=== PATIENT | female | born 1980 | race Caucasian/White ===

== ENCOUNTER 2016-12-21 12:12 | Outpatient (CLI) | payer OTHER ==
[~2016-12-21 12:12] MED LIST: ACHYD1T PO; DCS100C PO; IBP800T PO; PREN1TAB14 PO
== END 2016-12-21 13:15 | disposition home or self-care (01) ==
LOC: WSo 12:12
PROVIDERS: ATTEND Obstetrics & Gynecology
DX: Z41.8 Encounter for other procedures for purposes other than remedying health state (principal)
CPT/HCPCS: 96372

== ENCOUNTER 2017-02-27 05:31 | Outpatient (CLI) | payer OTHER ==
[~2017-02-27] VITALS: Ht 162.6 cm; Wt 102.1 kg
[2017-02-27] MEDS ORDERED: PREN-37 PO (11:27)
== END 2017-02-27 13:08 ==
LOC: PREOP 05:31
PROVIDERS: ATTEND Obstetrics & Gynecology
DX: Z01.818 Encounter for other preprocedural examination (principal); O34.219 Maternal care for unspecified type scar from previous cesarean delivery; O99.013 Anemia complicating pregnancy, third trimester; D64.9 Anemia, unspecified

== ENCOUNTER → 2017-02-28 | Outpatient (CLI) | payer OTHER ==
[~2017-02-28] MED LIST changes: +PREN-37 PO
[2017-02-28 11:43] LABS: PROTEIN/CREATININE RATIO 0.13
== END ==
LOC: LABNPT 11:20
PROVIDERS: ATTEND Obstetrics & Gynecology
DX: O14.03 Mild to moderate pre-eclampsia, third trimester (principal)
CPT/HCPCS: 82570; 84156

== ENCOUNTER 2017-03-06 07:00 | Inpatient (IN) | payer OTHER ==
[~2017-03-06] VITALS: Ht 165.1 cm; Wt 101.6 kg
[2017-03-07 11:15] VITALS: BP 139/86
[2017-03-07] MEDS ORDERED: metroNIDAZOLE 500MG/100ML IVPB 100 ML ONE (12:09)
[2017-03-07] MEDS ORDERED: LACTATED RINGERS 1,000 ML IV ONE ×2 (12:09→16:05)
[2017-03-07] MEDS ORDERED: METOCLOPRAMIDE INJ 10 MG/2 ML (REGLAN) ONE (12:09)
[2017-03-07] MEDS ORDERED: ceFAZolin 2 GM/50 ML NS 50 ML ONE (12:09)
[2017-03-07] MEDS ORDERED: CITRIC ACID/SOB CIT (BICITRA) 30 ML UDC ONE (12:09)
[2017-03-07] MEDS ORDERED: FAMOTIDINE 20MG/2ML IV (PEPCID) ONE (12:10)
[2017-03-07] MEDS ORDERED: metroNIDAZOLE 500 MG/100 ML IVPB (PRE-MIX) IV ONE (12:30)
[2017-03-07] MEDS ORDERED: ceFAZolin 2 GM/NS 50 ML IV ONE (12:30)
[2017-03-07] MEDS ORDERED: LACTATED RINGERS 1,000 ML IV PRN (12:40)
[2017-03-07] MEDS ORDERED: metroNIDAZOLE 500MG/100ML IVPB 100 ML IV ONE (12:45)
[2017-03-07] MEDS ORDERED: ceFAZolin 2 GM/50 ML NS 50 ML IV ONE (12:45)
[2017-03-07] MEDS ORDERED: CATHETER FLUSH 10 ML SYR IV PRN (12:45)
[2017-03-07] MEDS ORDERED: CITRIC ACID/SOB CIT (BICITRA) 30 ML UDC PO ONE ×2 (12:45→14:00)
[2017-03-07] MEDS ORDERED: METOCLOPRAMIDE INJ 10 MG/2 ML (REGLAN) IV ONE ×2 (12:45→14:00)
[2017-03-07] MEDS ORDERED: FAMOTIDINE 20MG/2ML IV (PEPCID) IV ONE ×2 (12:45→14:00)
[2017-03-07 12:56] LABS: BASOPHILS % (AUTO) 0 % (0-10); EOSINOPHILS # (AUTO) 0.1 10^3/uL (0.0-0.3); EOSINOPHILS % (AUTO) 1 % (0-10); LYMPHOCYTES # (AUTO) 1.2 X 10^3 (1.0-4.0); LYMPHOCYTES % (AUTO) 13 % (12-44); MEAN CORPUSCULAR HEMOGLOBIN 29 PG (25-34); MEAN CORPUSCULAR HGB CONC 34 G/DL (32-36); MEAN CORPUSCULAR VOLUME 87 FL (80-99); MEAN PLATELET VOLUME 12.4 FL (7.4-10.4); MONOCYTES # (AUTO) 0.5 X 10^3 (0.0-1.0); MONOCYTES % (AUTO) 5 % (0-12); NEUTROPHILS # (AUTO) 7.5 X 10^3 (1.8-7.8); NEUTROPHILS % (AUTO) 81 % (42-75); PLATELET COUNT 176 10^3/uL (130-400); RED BLOOD COUNT 3.76 10^6/uL (4.35-5.85); RED CELL DISTRIBUTION WIDTH 13.6 % (10.0-14.5); WHITE BLOOD COUNT 9.3 10^3/uL (4.3-11.0)
[2017-03-07] MEDS ORDERED: LACTATED RINGERS 1,000 ML IV SCH ×2 (13:57)
[2017-03-07] MEDS ORDERED: morphine PF (DURAMORPH) 10 MG/10 ML AMP ONE (14:54)
[2017-03-07] MEDS ORDERED: fentaNYL INJECTION 100 MCG/2 ML AMP ONE (14:54)
--- NOTE | 2017-03-07 15:13 | History & Physical ---
History and Physical Date Seen by Provider: Mar 07, 2017 Time Seen by Provider: 15:10 this patient is a 36-year-old G2 P Johnny 1 white female currently at 39 weeks gestation. She presents now for repeat delivery. Her GBS culture was negative. She denies rupture membranes or bleeding. Allergies are to penicillin which causes a rash Medications are vitamins Past medical history, past surgical history, genetic history, family history, social history is operative record HEENT exam is normal Neck supple no lymphadenopathy no thyromegaly Abdomen gravid soft nontender nondistended extremities show no clubbing or cyanosis. There is fairly notable pretibial pitting edema that is not unusual for this patient. pelvic exam is deferred Lab recess follows Laboratory Tests 03/07/17 12:20 assessment and plan term at 39 weeks gestation admitted now for repeat delivery. Surgical risks complications recovered uneventfully discussed. Patient is ready to proceed. term at 39 weeks for repeat delivery Allergies and Home Medications Allergies Coded Allergies: Penicillins (Verified Allergy, Unknown, HIVES, 02/27/17) Home Medications Vit/Iron Fumarate/FA 1 Each Tablet, 1 EACH PO DAILY, (Reported) JAKE SERVIN MD Mar 07, 2017 3:12 pm
[2017-03-07] MEDS ORDERED: BUPIVACAINE SPINAL 0.75% (SENSORCAINE) 2 ML AMP ONE (15:14)
[2017-03-07] MEDS ORDERED: PROMETHAZINE INJ 25 MG/ML (PHENERGAN) AMP IM PRN (15:15)
[2017-03-07] MEDS ORDERED: MEPERIDINE (DEMEROL) INJ 100 MG/ML IM PRN (15:15)
[2017-03-07] MEDS ORDERED: TETANUS,DIPTH,PERTUSS P/F (BOOSTRIX) 0.5 ML VIAL IM ONE (15:15)
[2017-03-07] MEDS ORDERED: ONDANSETRON 4 MG/2 ML (SDV) Z0FRAN ONE (15:15)
[2017-03-07] MEDS ORDERED: D5 LR IV SOLUTION 1,000 ML IV ONE (15:15)
[2017-03-07] MEDS ORDERED: oxyCODONE/APAP 10/325MG (PERCOCET 10) TABLET PO PRN (15:15)
[2017-03-07] MEDS ORDERED: MEASLES,MUMPS,RUBELLA 1 EA INJ SC ONE (15:15)
[2017-03-07] MEDS ORDERED: OXYTOCIN/NORMAL SALINE 500 ML IV ONE (15:50)
[2017-03-07] MEDS ORDERED: fentaNYL INJECTION 100 MCG/2 ML AMP INJ ONE (16:15)
[2017-03-07] MEDS ORDERED: NALOXONE 0.4 MG/ML 1 ML (NARCAN) VIAL IV PRN (16:15)
[2017-03-07] MEDS ORDERED: morphine PF (DURAMORPH) 10 MG/10 ML AMP INJ ONE (16:15)
[2017-03-07] MEDS ORDERED: ONDANSETRON 4 MG/2 ML (SDV) Z0FRAN IV PRN (16:15)
[2017-03-07] MEDS: OXYTOCIN/NORMAL SALINE 500 ML IV SCH ×2 (16:16→20:23)
[2017-03-07] MEDS: HYDROCORTISONE 2.5% CREAM (ANUSOL-HC) 30 GM TOP SCH (16:24)
[2017-03-07] MEDS: KETOROLAC 30 MG/ML VIAL IVP SCH ×2 (16:25→22:04)
[2017-03-07] MEDS: DOCUSATE SODIUM 100 MG (COLACE) CAP PO SCH (20:25)
[2017-03-07 20:30] VITALS: BP 151/78
[2017-03-08 00:20] VITALS: BP 143/77
--- NOTE | 2017-03-08 02:11 | OPERATIVE REPORT ---
DATE OF SERVICE: 03/07/2017 PREOPERATIVE DIAGNOSIS: Term with previous at 39 weeks, now presenting for repeat . POSTOPERATIVE DIAGNOSIS: Term with previous at 39 weeks, now presenting for repeat . OPERATIVE PROCEDURE: Repeat low transverse delivery of a viable female infant with Apgars of 8 and 9 at 1 and 5 minutes respectively, weight of 6 pounds and 9 ounces. Cord blood pH of 7.32 and the time of 15:30. OPERATIVE DESCRIPTION: With the patient in the supine position under satisfactory spinal anesthesia, the patient was prepped and draped in the usual fashion for abdominal surgery. Lyn catheter was placed to dependent drainage. A repeat Pfannenstiel incision was made through the skin with a scalpel at the patient's previous Pfannenstiel incision by removing the incisional scar. The abdomen was entered in the usual manner. Bladder retractor was placed in position and clean scalpel was used to make a 4 cm hysterotomy incision transversally across the lower uterine segment that was extended by blunt dissection as well. Copious clear fluid was released on hysterotomy. A vigorous viable female was delivered via the uterine incision. Bran forceps were applied to facilitate the delivery and minimize the excess pressure that would have been required on the abdomen to expel the baby. The infant was bulb suctioned on delivery of the head and again on completion of delivery. The umbilical cord was doubly clamped and cut and the passed to the pediatric nurse in attendance for delivery. Cord bloods were obtained. The placenta delivered spontaneously Schultze. It was normal with a 3-vessel cord. The uterus was exteriorized, the interior wiped clean with a wet laparotomy sponge. Uterine incision was closed with a running lock suture of 2-0 Vicryl. Hemostasis was complete. The uterus was returned to the abdominal cavity. All blood clot and debris removed from the abdominal cavity. With sponge and needle counts correct and hemostasis assured, the anterior parietal peritoneum was closed with running suture of 2-0 Vicryl. The rectus muscles were closed with that same suture. The rectus fascia was closed with 2-0 Vicryl and then a subcutaneous tissue with 2-0 Vicryl and the skin was stapled. Sponge and needle counts were correct at the end of the procedure. Estimated blood loss for the procedure was around 500 mL. The patient tolerated the procedure well and was transferred to the recovery room in stable condition. The infant had been taken stable to the full term nursery under the care of the pediatric nurse. Job ID: [id number] DocumentID: [id number] Dictated Date: 03/07/2017 16:01:07 Engineer Intern Date: 03/08/2017 02:10:26 Dictated By: JAKE SERVIN MD
[2017-03-08 04:15] VITALS: BP 135/76
[2017-03-08] MEDS: KETOROLAC 30 MG/ML VIAL IVP SCH (04:17)
--- NOTE | 2017-03-08 07:56 | Progress Note-Standard ---
Standard Progress Note Progress Notes/Assess & Plan Date Seen by Provider: Mar 08, 2017 Time Seen by Provider: 07:55 Progress/Assessment & Plan this patient is without complaint. She denies chest pain, denies shortness of breath, denies nausea vomiting, denies headache. This patient is ablating, voiding, tolerating by mouth well, and has good pain control. Vital Signs Date Time Temp Pulse Resp B/P (MAP) Pulse Ox O2 Delivery O2 Flow Rate FiO2 03/08/17 04:15 98.3 71 18 135/76 (95) 98 Room Air 03/08/17 00:20 98.3 75 18 143/77 (99) 96 Room Air 03/07/17 20:30 99.0 83 18 151/78 (102) 96 Room Air 03/07/17 11:15 85 18 139/86 (103) Room Air I & O 03/08/17 07:00 Intake Total 4250 ml Output Total 1475 ml Balance 2775 ml Vital signs are stable. Patient is afebrile. The abdomen is benign. The surgical incision is clean dry and intact. The fundus is firm below the umbilicus and nontender. Extremities show no clubbing cyanosis. There is no Homans sign. There is some obvious pretibial pitting edema that is not abnormal. Assessment and plan postoperative day number 1 status post repeat doing well. Plan is for routine convalescence care JAKE SERVIN MD Mar 08, 2017 7:56 am
[2017-03-08 08:30] VITALS: BP 134/79
--- OUTSIDE RECORDS SUMMARY | 2017-03-08 09:38 | XMS REPORT | Continuity of Care Document ---
Author Author [facility] Organization [facility] Address Unknown Phone Unavailable Allergies Active Description Code Type Severity Reaction Onset Reported/Identified Relationship to Patient Clinical Status Yes No Known Drug Allergies [id number] Drug Allergy Unknown N/A 08/01/2012 Yes Penicillins [id number] Drug Allergy Unknown HIVES 02/27/2017 Medications There is no data. Problems Date Dx Coded Attending Type Code Diagnosis Diagnosed By 08/03/2012 JAKE SERVIN MD, Ot 648.91 OTH CURR COND-DELIVERED 08/03/2012 JAKE SERVIN MD Ot 652.51 HIGH HEAD AT TERM-DELIV 08/03/2012 JAKE SERVIN MD, Ot 653.41 FETOPELV DISPROPOR-DELIV 08/03/2012 JAKE SERVIN MD, Ot 657.01 POLYHYDRAMNIOS,DEL W OR W/O MENTN ANTEPA 08/03/2012 JAKE SERVIN MD Ot 660.11 BONY PELV OBSTRUCT-DELIV 08/03/2012 JAKE SREVIN MD Ot V02.51 GROUP B STREPT CARRIER/SUSPECTED CARRIER 08/03/2012 JAKE SERVIN MD, Ot V06.1 [id number], COMBINED [ 08/03/2012 JAKE SERVIN MD, Ot V07.2 PROPHYLACT IMMUNOTHERAPY 08/03/2012 JAKE SERVIN MD Ot V27.0 DELIVER-SINGLE LIVEBORN 12/21/2016 JAKE SERVIN MD, Ot Z41.8 ENCNTR FOR OTH PROC FOR PURPOSE OTH THAN 12/22/2016 JAKE SERVIN MD, Ot Z41.8 ENCNTR FOR OTH PROC FOR PURPOSE OTH THAN 02/27/2017 JAKE SERVIN MD, Ot D64.9 ANEMIA, UNSPECIFIED 02/27/2017 JAKE SERVIN MD, Ot O34.219 MATERNAL CARE FOR UNSP TYPE SCAR FROM ID 02/27/2017 JAKE SERVIN MD, Ot O99.013 ANEMIA COMPLICATING , THIRD TRI 02/27/2017 JAKE SERVIN MD, Ot Z01.818 ENCOUNTER FOR OTHER PREPROCEDURAL EXAMIN 03/01/2017 JAKE SERVIN MD, Ot D64.9 ANEMIA, UNSPECIFIED 03/01/2017 JAKE SERVIN MD, Ot O34.219 MATERNAL CARE FOR UNSP TYPE SCAR FROM ID 03/01/2017 JAKE SERVIN MD, Ot O99.013 ANEMIA COMPLICATING , THIRD TRI 03/01/2017 JAKE SERVIN MD, Ot Z01.818 ENCOUNTER FOR OTHER PREPROCEDURAL EXAMIN 03/05/2017 JAKE SERVIN MD, Ot O14.03 MILD TO MODERATE PRE-ECLAMPSIA, THIRD TR 03/05/2017 JAKE SERVIN MD, Ot O14.03 MILD TO MODERATE PRE-ECLAMPSIA, THIRD TR 03/05/2017 JAKE SERVIN MD, Ot O14.03 MILD TO MODERATE PRE-ECLAMPSIA, THIRD TR 03/05/2017 JAKE SERVIN MD, Ot O14.03 MILD TO MODERATE PRE-ECLAMPSIA, THIRD TR Procedures Code Description Performed By Performed On 74.1 LOW CERVICAL 08/01/2012 Results Test Result Range RH IMMUNE GLOBULIN RHOPHYLAC - 12/21/16 12:24 RH IMMUNE GLOBULIN RHOPHYLAC PRSMD TRFSD 12/21/16 1304 NRG Transfusion band number - 12/21/16 12:24 Transfusion band number TNP NRG [id number] - 12/21/16 12:24 [id number] 300ug NRG Lot number - 12/21/16 12:24 Lot number [id number] NRG cell screen - 12/21/16 12:24 cell screen [id number] NRG cell screen 10/19/18 NRG Urine protein/creatinine mass ratio - 02/28/17 11:01 Urine protein measurement (mass/volume) 13 mg/dL 6-12 Urine creatinine measurement (mass/volume) 100 mg/dL 30- 125 Urine protein/creatinine mass ratio 0.13 NRG Complete blood count (CBC) with automated white blood cell (WBC) differential - 03/07/17 12:20 Blood leukocytes automated count (number/volume) 9.3 10*3/uL 4.3-11.0 Blood erythrocytes automated count (number/volume) 3.76 10*6/uL 4.35-5.85 Venous blood hemoglobin measurement (mass/volume) 11.0 g/dL 11.5-16.0 Blood hematocrit (volume fraction) 33 % 35-52 Automated erythrocyte mean corpuscular volume 87 [foz_us] 80-99 Automated erythrocyte mean corpuscular hemoglobin (mass per erythrocyte) 29 pg 25-34 Automated erythrocyte mean corpuscular hemoglobin concentration measurement ( mass/volume) 34 g/dL 32-36 Automated erythrocyte distribution width ratio 13.6 % 10.0-14.5 Automated blood platelet count (count/volume) 176 10*3/uL 130-400 Automated blood platelet mean volume measurement 12.4 [foz_us] 7.4-10.4 Automated blood neutrophils/100 leukocytes 81 % 42-75 Automated blood lymphocytes/100 leukocytes 13 % 12-44 Blood monocytes/100 leukocytes 5 % 0-12 Automated blood eosinophils/100 leukocytes 1 % 0-10 Automated blood basophils/100 leukocytes 0 % 0-10 Blood neutrophils automated count (number/volume) 7.5 10*3 1.8-7.8 Blood lymphocytes automated count (number/volume) 1.2 10*3 1.0-4.0 Blood monocytes automated count (number/volume) 0.5 10*3 0.0-1.0 Automated eosinophil count 0.1 10*3/uL 0.0-0.3 Automated blood basophil count (count/volume) 0.0 10*3/uL 0.0-0.1 Blood type T Indirect antibody screen panel - 03/07/17 12:20 ABO+Rh group AN NRG Transfusion band number [id number] Blood group antibody screen NEGATIVE NRG cell screen - 03/08/17 06:48 SCREEN LOT NUMBER [id number] Transfusion band number [id number] [facility] [id number] 300ug NRG Erythrocytes./1000 erythrocytes 03/23/17 NRG cell screen 10/19/18 NRG cell screen NEGATIVE NEGATIVE Lot number [id number] NRG Encounters ACCT No. Visit Date/Time Discharge Status Pt. Type Provider Facility Loc./Unit Complaint [id number] 02/28/2017 11:20:00 02/28/2017 23:59:59 CLS Outpatient JAKE SERVIN MD [facility] LABNPT [id number] 02/27/2017 05:31:00 02/27/2017 13:08:00 DIS Outpatient JAKE SERVIN MD [facility] PREOP [id number] 12/21/2016 12:12:00 12/21/2016 13:15:00 DIS Outpatient JAKE SERVIN MD [facility] WSo RHOGAM INJ [id number] 08/01/2012 07:16:00 08/03/2012 13:45:00 DIS Inpatient JAKE SERVIN MD [facility] WS INDUCTION [id number] 03/07/2017 11:15:00 ACT Inpatient JAKE SERVIN MD [facility] LDRP
[2017-03-08] MEDS ORDERED: IBUPROFEN 800 MG (MOTRIN) TAB PO ONE (10:23)
[2017-03-08] MEDS: DOCUSATE SODIUM 100 MG (COLACE) CAP PO SCH ×2 (10:27→22:44)
[2017-03-08] MEDS: IBUPROFEN 800 MG (MOTRIN) TAB PO SCH ×3 (10:28→22:45)
[2017-03-08] MEDS: HYDROCORTISONE 2.5% CREAM (ANUSOL-HC) 30 GM TOP SCH ×2 (11:01→22:44)
[2017-03-08] MEDS ORDERED: SIMETHICONE 80 MG (MYLICON) CHEW PO SCH (13:00)
[2017-03-08 13:05] VITALS: BP 118/77
--- NOTE | 2017-03-08 13:26 | Anesthesia-Regional Post-Op ---
Regional Patient Condition Mental Status: Alert, Oriented x3 Circulation: Same as Pre-Op Headache: Absent Sensation: Full Recovery Motor Block: Absent Post Op Complications Complications None Follow Up Care/Instructions Patient Instructions None needed. Anesthesia/Patient Condition Patient is doing well, no complaints, stable vital signs, no apparent adverse anesthesia problems. No complications reported per nursing. ANTHONY CARRASCO CRNA Mar 08, 2017 13:26
[2017-03-08 16:13] VITALS: BP 130/84
[2017-03-08 22:50] VITALS: BP 127/79
[2017-03-09 04:39] VITALS: BP 154/88
[2017-03-09] MEDS: IBUPROFEN 800 MG (MOTRIN) TAB PO SCH ×2 (04:40→13:02)
--- NOTE | 2017-03-09 08:21 | Progress Note-Standard ---
Standard Progress Note Progress Notes/Assess & Plan Date Seen by Provider: Mar 09, 2017 Time Seen by Provider: 08:20 Progress/Assessment & Plan this patient is without complaint. She denies chest pain, denies shortness of breath, denies nausea vomiting, denies headache. This patient is ablating, voiding, tolerating by mouth well, and has good pain control. Vital Signs Date Time Temp Pulse Resp B/P (MAP) Pulse Ox O2 Delivery O2 Flow Rate FiO2 03/08/17 04:15 98.3 71 18 135/76 (95) 98 Room Air 03/08/17 00:20 98.3 75 18 143/77 (99) 96 Room Air 03/07/17 20:30 99.0 83 18 151/78 (102) 96 Room Air 03/07/17 11:15 85 18 139/86 (103) Room Air I & O 03/08/17 07:00 Intake Total 4250 ml Output Total 1475 ml Balance 2775 ml Vital signs are stable. Patient is afebrile. The abdomen is benign. The surgical incision is clean dry and intact. The fundus is firm below the umbilicus and nontender. Extremities show no clubbing cyanosis. There is no Homans sign. There is some obvious pretibial pitting edema that is not abnormal. Assessment and plan postoperative day number 1 status post repeat doing well. Plan is for routine convalescence care March 09, 2017 Patient is without complaint. She is requesting discharge home. Vital Signs Date Time Temp Pulse Resp B/P (MAP) Pulse Ox O2 Delivery O2 Flow Rate FiO2 03/09/17 04:39 98.5 85 18 154/88 (110) 97 Room Air 03/08/17 22:50 98.9 87 18 127/79 (95) 96 Room Air 03/08/17 16:13 98.8 80 18 130/84 (99) 98 Room Air 03/08/17 13:05 98.3 82 18 118/77 (91) 96 Room Air 03/08/17 08:30 98.7 83 18 134/79 (97) Room Air I & O 03/09/17 07:00 Intake Total 1000 ml Balance 1000 ml vital signs are stable. Patient is afebrile. Abdomen is benign. The fundus is firm below the umbilicus and nontender. Incision is clean dry and intact. Extremities show no clubbing or cyanosis. There is no Homans sign. There is fairly notable tibial pitting edema that is normal. Assessment and plan postoperative day number 2 status post repeat doing well. Plan is for discharge home with follow-up in clinic Final Diagnosis repeat delivery JAKE SERVIN MD Mar 09, 2017 8:21 am
[2017-03-09] MEDS ORDERED: IBUP-1780 PO (08:22)
[2017-03-09] MEDS ORDERED: DOCU100C37 PO (08:22)
[2017-03-09] MEDS ORDERED: OXYC-465 PO (08:22)
--- NOTE | 2017-03-09 08:23 | Discharge Instructions ---
Discharge Instructions Discharge Medications New, Converted or Re-Newed RX: RX on Chart Patient Instructions Patient Instructions: as directed Return to The Hospital For: as directed Activity & Diet Discharge Diet: No Restrictions Activity as Tolerated: No Orders-Post D/C & Referrals Follow Up Appt: RTC on , March 15, 2017 at 930 a.m. for incision check. Call to make follow up appt. for patient in 4 weeks. Wound Care: Remove julio cesar, apply benzoin and steri strips. Activity Per routine post instructions. Please call in RX to patient pharmacy. Diet as tolerated Patient may shower or tub bathe as desired. Continue home meds JAKE SERVIN MD Mar 09, 2017 8:23 am
[2017-03-09 08:25] VITALS: BP 141/93
[2017-03-09] MEDS: DOCUSATE SODIUM 100 MG (COLACE) CAP PO SCH (09:46)
[2017-03-09] MEDS: HYDROCORTISONE 2.5% CREAM (ANUSOL-HC) 30 GM TOP SCH (09:51)
[2017-03-09 14:00] VITALS: BP 141/93
== END 2017-03-09 14:00 | disposition home or self-care (01) | DRG 766 ==
LOC: LDRP 03-07 11:15
PROVIDERS: ADMIT Obstetrics & Gynecology; ATTEND Obstetrics & Gynecology
PROC: 10D00Z1 Extraction of Products of Conception, Low, Open Approach (ICD-10-PCS; principal; 2017-03-07 15:06)
DX: O34.211 Maternal care for low transverse scar from previous cesarean delivery (principal); Z3A.39 39 weeks gestation of pregnancy; Z37.0 Single live birth
CPT/HCPCS: 36415; 83033; 85025; 86850; 86900; 86901; 94664